=== PATIENT | male | born 1965 | race Caucasian/White ===

== ENCOUNTER 2018-11-20 18:02 | Emergency (ER) | payer OTHER ==
[2018-11-20 18:18] VITALS: BP 111/73
--- NOTE | 2018-11-20 18:43 | UC ---
Hand/Wrist HPI - HPI Summary HPI Summary: pt was cutting a thorn tree, got a thorn in his R knuckle, now he has swelling and pain into the wrist as well as elbow. Cannot move his wrist. - History Of Current Complaint Chief Complaint: UCGeneralIllness Stated Complaint: LT HAND/WRIST COMPLAINT Time Seen by Provider: 11/20/18 18:04 Hx Obtained From: Patient ?: No Onset/Duration: Sudden Onset, Lasting Hours Severity Initially: Severe Severity Currently: Severe Pain Intensity: 8 Aggravating Factor(s): Movement, Lifting, Flexion, Extension Alleviating Factor(s): Nothing Associated Signs And Symptoms: Positive: Swelling, Redness, Weakness, Numbness/ Tingling - Allergies/Home Medications Allergies/Adverse Reactions: Allergies Allergy/AdvReac Type Severity Reaction Status Date / Time No Known Allergies Allergy Verified 11/20/18 18:19 PMH/Surg Hx/FS Hx/Imm Hx Previously Healthy: Yes - Surgical History Surgical History: None - Family History Known Family History: Positive: Hypertension - Social History Alcohol Use: Occasionally Substance Use Type: None Smoking Status (MU): Never Smoked Tobacco Review of Systems All Other Systems Reviewed And Are Negative: Yes Skin: Positive: Other - redness Musculoskeletal: Positive: Arthralgia, Decreased ROM, Edema, Myalgia Is Patient Immunocompromised?: No Physical Exam Triage Information Reviewed: Yes Appearance: Well-Nourished, Ill-Appearing, Pain Distress Vital Signs: Initial Vital Signs Temp 97.8 F 11/20/18 18:15 Pulse 105 11/20/18 18:15 Resp 17 11/20/18 18:15 BP 111/73 11/20/18 18:15 Pulse Ox 98 11/20/18 18:15 Vital Signs Reviewed: Yes Eye Exam: Normal ENT Exam: Normal Dental Exam: Normal Neck exam: Normal Respiratory Exam: Normal Respiratory: Positive: Chest non-tender, Lungs clear, Normal breath sounds Cardiovascular: Positive: No Murmur, Pulses Normal, Tachycardia Abdominal Exam: Normal Bowel Sounds: Positive: Present Musculoskeletal Exam: Normal Musculoskeletal: Positive: 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 - Differential Dx/Diagnosis Differential Diagnosis/HQI/PQRI: Cellulitis, Sprain, Strain, Tendonitis, Tenosynovitis Provider Diagnosis: Infected joint of finger Discharge ED - Sign-Out/Discharge Documenting (check all that apply): Patient Departure All imaging exams completed and their final reports reviewed: No Studies - Discharge Plan Condition: Stable Disposition: HOME-RECOMMEND TO ED Patient Education Materials: Wound Infection (ED) Referrals: Feliz Mclean DO [Primary Care Provider] - Additional Instructions: 1. I recommend you follow up in the ER for further evaluation. 2. Your infection and pain is moving fast, will need higher level of care. - Billing Disposition and Condition Condition: STABLE Disposition: Home-Recommend to ED
== END 2018-11-20 18:41 | disposition home health service (06) ==
LOC: UCCORT 18:02
DX: M00.9 Pyogenic arthritis, unspecified (principal)
CPT/HCPCS: 99212; G0463